=== PATIENT | female | born 1935 | race Caucasian/White ===

== ENCOUNTER 2019-05-15 00:23 | Inpatient (IN) ==
[2019-05-15] MEDS ORDERED: SODIUM CHLORIDE 0.9% INJ ONE (01:46)
[2019-05-15] MEDS ORDERED: ZOFRAN IV ONE ×2 (01:46→07:01)
[2019-05-15] MEDS ORDERED: PEPCID IV ONE (01:46)
[2019-05-15 01:59] LABS: BASO# 0.04 X1000 (0.0-0.2); BASO% 0.6 % (0.0-0.8); EOS# 0.33 X1000 (0.0-0.7); EOS% 4.7 % (0.0-10.0); HEMATOCRIT 43.8 % (37.0-47.0); HEMOGLOBIN 13.4 g/dL (12.0-16.0); IMM GRAN# 0.02 X1000 (0.0-0.04); IMM GRAN% 0.3 % (0.0-0.5); LYMPH# 2.07 X1000 (1.2-3.4); LYMPH% 29.5 % (20.5-51.1); MCH 28.8 PG (27-31); MCHC 30.6 g/dL (33-37); MONO# 0.66 X1000 (0.11-0.59); MONO% 9.4 % (1.7-9.3); MPV 10.2 FL (7.4-10.4); NEUT% 55.5 % (42.2-75.2); PLT 271 X1000 (130-400); RBC 4.66 XMIL (4.2-5.4); RDW 15.5 % (11.5-14.5); WBC 7.02 X1000 (4.8-10.8)
[2019-05-15 02:06] LABS: INR 2.29; PROTIME 25.8 Seconds (11.0-16.0)
[2019-05-15 02:17] LABS: ALBUMIN 4.1 g/dL (3.5-5.0); CALCIUM 8.5 mg/dL (8.8-10.2); CREATININE 1.4 mg/dL (0.5-0.9); POTASSIUM 4.3 mmol/L (3.5-5.1); TOTAL BILIRUBIN 0.6 mg/dL (0.20-1.00); TOTAL PROTEIN 6.2 g/dL (6.3-8.3)
[2019-05-15 02:18] LABS: URINE SOURCE CLEAN CATCH
[2019-05-15 02:43] LABS: BILIRUBIN URINE NEGATIVE (NEGATIVE); BLOOD URINE NEGATIVE (NEGATIVE); COLOR YELLOW; GLUCOSE URINE NEGATIVE (NEGATIVE); KETONE URINE NEGATIVE (NEGATIVE); LEUKOCYTES URINE NEGATIVE (NEGATIVE); NITRITE URINE NEGATIVE (NEGATIVE); PH URINE 6.5; PROTEIN URINE TRACE mg/dL (NEGATIVE); SP GRAVITY URINE 1.013; TURBIDITY URINE CLEAR (CLEAR); UROBILINOGEN URINE NORMAL (NORMAL)
[2019-05-15 02:44] LABS: UR EPITHELIAL CELLS <10 /HPF (<10); URINE BACTERIA NEGATIVE /HPF; URINE RBC <10 /HPF (<10); URINE WBC <10 /HPF (<10)
[2019-05-15] MEDS ORDERED: LASIX IV ONE (03:03)
[2019-05-15] MEDS ORDERED: NITROGLYCERIN SL PRN (05:07)
--- NOTE | 2019-05-15 05:45 | PROVIDER DOCUMENTATION ---
This chart was entered by Jay Abebe Scribe, acting as scribe for Mignon Enciso MD. HPI-Respiratory General - General Chief Complaint: Shortness of Breath Stated Complaint: SOB/ITCHING ALL OVER BODY Time Seen by Provider: 05/15/19 01:00 Source: patient, family Allergies/Adverse Reactions: Patient Allergies Allergy/AdvReac Type Severity Reaction Status Date / Time celecoxib [From Celebrex] Allergy Severe SWELLING Verified 05/15/19 01:24 Xuinvpa-Zva-Rii Reductase Allergy Severe generalized Verified 05/15/19 01:24 Inhibitor body aches tiotropium bromide * Allergy Intermediate SHORTNESS Verified 05/15/19 01:24 [From Spiriva with OF BREATH HandiHaler] albuterol AdvReac Severe confusion Verified 05/15/19 01:24 Home Medications: Home Medication List Medication Instructions Recorded Confirmed Last Taken Type Fluticasone 50 Mcg Nasal [place] 2 spray ANICETO PRN PRN 07/23/13 05/15/19 05/14/19 History [Flonase] Levothyroxine [Synthroid] 100 microgm PO QAM 07/23/13 05/15/19 05/14/19 History Nitroglycerin Sl [Nitroglycerin] 0.4 mg SL PRN PRN 07/23/13 05/15/19 08/10/18 History Lansoprazole [Prevacid] 30 mg PO QPM 02/28/14 05/15/19 05/14/19 History Albuterol Sulfate [Ventolin Hfa] 1 inh INH Q4-6H PRN PRN 02/02/18 05/15/19 08/11/18 History Aspirin [Ecotrin] 1 tab PO QHS 07/07/18 05/15/19 05/14/19 History Tramadol HCl 1 tab PO Q8H PRN PRN 07/07/18 05/15/19 08/10/18 History Furosemide 20 mg PO DIRECTED 08/11/18 05/15/19 08/11/18 History Loperamide [Imodium] 2 mg PO Q4H PRN PRN 30 Days #40 cap 08/15/18 05/15/19 Unknown Rx Telmisartan 40 mg PO DAILY 30 Days #30 tab 08/15/18 05/15/19 05/14/19 Rx Diclofenac 1% Gel [Voltaren 1% Gel] 1 applicatn TOP QHS 05/15/19 05/15/19 05/14/19 History Dicyclomine [Bentyl] 10 mg PO TID PRN 05/15/19 05/15/19 Unknown History Naproxen Sodium 220 mg PO TID 05/15/19 05/15/19 Unknown History Spironolactone 25 mg PO DAILY 05/15/19 05/15/19 05/14/19 History Warfarin [Coumadin] 1 mg PO DIRECTED 05/15/19 05/15/19 05/14/19 History Warfarin [Coumadin] 2 mg PO DIRECTED 05/15/19 05/15/19 05/13/19 History - History of Present Illness-Resp Nature of Presenting Problem: Pt is a 84 yof who presents to the ED with a CC of shortness of breath. Pt reports she began short of breath at approximately 0000. Pt complains of having chills, body aches, headache, chest pain, nauseated, and feeling itchy. Pt reports her PCP recently changed a few of her medications. Pt reports a hx of 2x heart attacks. Pt's states the pt has had similar symptoms lately, but states the pt's SOB worsened tonight. Quality of Pain: reports: aching Severity in ED: reports: mild Onset/Duration: reports: 1-3 hours ago Timing: reports: still present Cough Quality/Degree: reports: no cough Current Respiratory Medication Therapy: Initiated see nurses note Associated Symptoms: reports: chest pain/soreness, headache, muscle/bodyaches, shortness of breath, other (Itchy) Similar Symptoms Previously?: Yes Recently seen or treated by another doctor?: Yes Review of Systems - Adult - REVIEW OF SYSTEMS - ADULT Constitutional: reports: see HPI Eyes: reports: no symptoms reported Ears, Nose, Mouth & Throat: reports: no symptoms reported Cardiovascular: reports: see HPI, chest pain Respiratory: reports: see HPI, shortness of breath Gastrointestinal: reports: see HPI, nausea. denies: vomiting Genitourinary: reports: no symptoms reported Musculoskeletal: reports: see HPI, muscle aches Integumentary: reports: see HPI, itching Neurological: reports: see HPI, headache/migraines Psychiatric: reports: no symptoms reported Endocrine: reports: no symptoms reported Hematologic/Lymphatic: reports: no symptoms reported Allergic/Immunologic: reports: no symptoms reported All Other Systems: Reviewed and Negative Past History - Adult - PAST MEDICAL HISTORY-ADULT Review of Records: reports: Old Records Reviewed, Nursing Assessment Review, Medications Reviewed, Social history reviewed & non-contributory. Major Childhood Illnesses: reports: denies history Cardiovascular: reports: HTN, [place] (x2) Respiratory: reports: asthma, COPD Gastrointestinal: reports: GERD Obstetrical/Gynecological: reports: denies history Genitourinary: reports: denies history Musculoskeletal: reports: denies history Neurological: reports: denies history Psychiatric: reports: denies history Endocrine/Immune: reports: thyroid disorder Other Conditions: reports: denies history - PRIOR SURGERIES/PROCEDURES Surgical/Procedure History: reports: cholecystectomy, hernia repair, other (c ystoscopy) - IMMUNIZATION STATUS Childhood Immunizations: See Nurse Assessment Flu Vaccine: See Nurse Assessment - FAMILY HISTORY Family History: reviewed, not pertinent - SOCIAL HISTORY Smoking: denies, non-smoker Substance Use: none/never, denies Alcohol Use Frequency: never Physical Exam-General - PHYSICAL EXAM-ADULT Initial Vital Signs Reviewed: Yes - CONSTITUTIONAL General Appearance: alert, mild distress, anxious - EYES Eyes: PERRL/EOMI - HEAD, EARS, NOSE, MOUTH & THROAT HENMT: moist mucous membranes - NECK Neck: non-tender, full range of motion - RESPIRATORY Respiratory: chest non-tender, no respiratory distress, crackles (Left lower base) - CARDIOVASCULAR Cardiovascular: normal peripheral pulses, regular rate, rhythm, systolic murmur - GASTROINTESTINAL (ABDOMEN) Abdominal Exam: non tender, soft - MUSCULOSKELETAL Extremity: normal range of motion, non-tender - SKIN Integumentary: normal color, warm/dry - NEUROLOGIC Neurologic: grossly normal - PSYCHIATRIC Psych/Mental Status: normal mood/affect, normal thought content, normal thought process, oriented x 3, anxious Progress - PLAN OF CARE/RESULTS Progress/Plan/Lab Results: Vital Signs - 8 hr 05/15/19 00:29 05/15/19 00:56 05/15/19 00:57 Temperature 98.0 F Pulse Rate 80 83 82 Respiratory Rate 20 20 16 Blood Pressure 137/86 144/87 O2 Sat by Pulse Oximetry 98 98 98 05/15/19 01:00 05/15/19 01:02 05/15/19 01:15 Temperature Pulse Rate 81 80 80 Respiratory Rate 18 24 12 Blood Pressure 123/88 O2 Sat by Pulse Oximetry 99 97 97 05/15/19 01:30 05/15/19 01:32 05/15/19 01:45 Temperature Pulse Rate 84 79 80 Respiratory Rate 18 19 20 Blood Pressure 129/86 O2 Sat by Pulse Oximetry 96 96 95 05/15/19 02:00 05/15/19 02:02 05/15/19 02:15 Temperature Pulse Rate 80 81 80 Respiratory Rate 16 16 20 Blood Pressure 125/92 O2 Sat by Pulse Oximetry 98 98 95 05/15/19 02:30 05/15/19 02:32 05/15/19 02:45 Temperature Pulse Rate 81 80 81 Respiratory Rate 15 20 21 Blood Pressure 133/91 O2 Sat by Pulse Oximetry 96 97 97 05/15/19 03:00 05/15/19 03:02 05/15/19 03:15 Temperature Pulse Rate 80 81 80 Respiratory Rate 20 19 22 Blood Pressure 131/85 O2 Sat by Pulse Oximetry 95 96 95 05/15/19 03:30 05/15/19 03:32 05/15/19 03:45 Temperature Pulse Rate 80 80 80 Respiratory Rate 24 20 19 Blood Pressure 145/85 O2 Sat by Pulse Oximetry 95 97 96 05/15/19 04:00 05/15/19 04:02 05/15/19 04:15 Temperature Pulse Rate 81 80 78 Respiratory Rate 16 17 19 Blood Pressure 135/92 O2 Sat by Pulse Oximetry 95 95 95 05/15/19 04:30 05/15/19 04:32 05/15/19 04:45 Temperature Pulse Rate 80 80 80 Respiratory Rate 18 18 24 Blood Pressure 133/88 O2 Sat by Pulse Oximetry 95 95 95 05/15/19 05:00 05/15/19 05:02 Temperature Pulse Rate 80 80 Respiratory Rate 18 18 Blood Pressure 137/85 O2 Sat by Pulse Oximetry 95 95 Laboratory Results - last 24 hr 05/15/19 05/15/19 05/15/19 01:10 01:10 01:10 WBC 7.02 RBC 4.66 Hgb 13.4 Hct 43.8 MCV 94.0 MCH 28.8 MCHC 30.6 L RDW Std Deviation 15.5 H Plt Count 271 MPV 10.2 Immature Gran % (Auto) 0.3 Neut % (Auto) 55.5 Lymph % (Auto) 29.5 [place] % (Auto) 9.4 H Eos % (Auto) 4.7 Baso % (Auto) 0.6 Immature Gran # (Auto) 0.02 Neut # (Auto) 3.90 Lymph # (Auto) 2.07 [place] # (Auto) 0.66 H Eos # (Auto) 0.33 Baso # (Auto) 0.04 PT INR PTT (Actin FS) Sodium 145 Potassium 4.3 Chloride 102 Carbon Dioxide 27 Anion Gap 16 BUN 28 H Creatinine 1.4 H Estimated GFR/1.73 m2 36 BUN/Creatinine Ratio 20 Glucose 102 Calculated Osmolality 294 Calcium 8.5 L Total Bilirubin 0.60 AST 20 ALT 11 Alkaline Phosphatase 95 Troponin T Fjf-G-Liqzbziwcaf Pept 95152 H Total Protein 6.2 L Albumin 4.1 Globulin 2.1 Albumin/Globulin Ratio 2.0 Amylase 76 Lipase 55 Urine Source Urine Color Urine Turbidity Urine pH Ur Specific [place] Urine Protein Ur Glucose (Stick) Ur Ketones (Stick) Urine Blood Urine Nitrite Urine Bilirubin Urobilinogen Dipstick Urine Leukocytes Urine WBC (Auto) Urine RBC (Auto) U Epithel Cells (Auto) Urine Bacteria (Auto) 05/15/19 05/15/19 05/15/19 01:10 01:10 01:54 WBC RBC Hgb Hct MCV MCH MCHC RDW Std Deviation Plt Count MPV Immature Gran % (Auto) Neut % (Auto) Lymph % (Auto) [place] % (Auto) Eos % (Auto) Baso % (Auto) Immature Gran # (Auto) Neut # (Auto) Lymph # (Auto) [place] # (Auto) Eos # (Auto) Baso # (Auto) PT 25.8 H INR 2.29 PTT (Actin FS) 41.0 Sodium Potassium Chloride Carbon Dioxide Anion Gap BUN Creatinine Estimated GFR/1.73 m2 BUN/Creatinine Ratio Glucose Calculated Osmolality Calcium Total Bilirubin AST ALT Alkaline Phosphatase Troponin T < 0.010 Yzy-Y-Wfghqyapsgc Pept Total Protein Albumin Globulin Albumin/Globulin Ratio Amylase Lipase Urine Source CLEAN CATCH Urine Color YELLOW Urine Turbidity CLEAR Urine pH 6.5 Ur Specific [place] 1.013 Urine Protein TRACE A Ur Glucose (Stick) NEGATIVE Ur Ketones (Stick) NEGATIVE Urine Blood NEGATIVE Urine Nitrite NEGATIVE Urine Bilirubin NEGATIVE Urobilinogen Dipstick NORMAL Urine Leukocytes NEGATIVE Urine WBC (Auto) <10 Urine RBC (Auto) <10 U Epithel Cells (Auto) <10 Urine Bacteria (Auto) NEGATIVE Orders Category Date Time Status Admit - [facility] Routine AdmDCTranf 05/15/19 05:07 Active Activity - Up with Assistance ORDERED Care 05/15/19 05:07 Active Intake and Output-Strict ORDERED Care 05/15/19 05:07 Active Nursing- MD Consult Request ROUTINE Care 05/15/19 05:07 Active Vital Signs Order Q 4-HR ASSESS Care 05/15/19 05:07 Active Z-Document. for Tele Applied ORDERED Care 05/15/19 05:07 Active MD [Physician/Provider Consults] Routine Cons 05/15/19 05:07 Ordered Physician/Provider Consults Routine Cons 05/15/19 05:07 Ordered Heart Healthy Diet Diet 05/15/19 05:07 Active CHEST-PORTABLE [RAD] Stat Exams 05/15/19 01:44 Taken AMYLASE [CHEM] Stat Lab 05/15/19 01:10 Completed BASIC METABOLIC PANEL [CHEM] Routine Lab 05/16/19 06:00 Ordered CBC WITH ELECTRONIC DIFF [HEME] Stat Lab 05/15/19 01:10 Completed COMPREHENSIVE METABOLIC PANEL [CHEM] Stat Lab 05/15/19 01:10 Completed LIPASE [CHEM] Stat Lab 05/15/19 01:10 Completed PRO B-NATRIURETIC PEPTIDE Stat Lab 05/15/19 01:10 Completed PROTIME WITH INR [COAG] DAILY Lab 05/15/19 06:00 Ordered PROTIME WITH INR [COAG] DAILY Lab 05/16/19 06:00 Ordered PROTIME WITH INR [COAG] DAILY Lab 05/17/19 06:00 Ordered PROTIME WITH INR [COAG] Stat Lab 05/15/19 01:10 Completed PTT [COAG] Stat Lab 05/15/19 01:10 Completed TROPONIN T Stat Lab 05/15/19 01:10 Completed URINALYSIS W/POSS RFLX CULT [URINALYSIS] Stat Lab 05/15/19 01:54 Completed Aspirin EC Med 05/15/19 21:00 Active 81 mg PO QHS Famotidine [Pepcid] Med 05/15/19 01:46 Discontinued 20 mg IV NOW ONE Furosemide [Lasix] Med 05/15/19 03:03 Discontinued 40 mg IV NOW ONE Furosemide [Lasix] Med 05/15/19 15:00 Active 40 mg IV Q12H Lansoprazole Rap.d.r [Prevacid Solutab] Med 05/15/19 21:00 Active 30 mg PO QPM Levothyroxine [Synthroid] Med 05/15/19 07:00 Active 100 microgm PO QAM@0700 Nitroglycerin Sl [Nitroglycerin] Med 05/15/19 05:07 Active 0.4 mg SL PRN PRN Ondansetron [Zofran] Med 05/15/19 01:46 Discontinued 4 mg IV NOW ONE Sodium Chloride 0.9% Med 05/15/19 01:46 Discontinued 5 - 10 ml INJ NOW ONE Spironolactone [Aldactone] Med 05/15/19 09:00 Active 25 mg PO DAILY Telmisartan [Micardis] Med 05/15/19 09:00 Active 40 mg PO DAILY Warfarin [Coumadin] Med 05/18/19 21:00 Active 1 mg PO MoFr@2100 Warfarin [Coumadin] Med 05/15/19 21:00 Active 2 mg PO SuTuWeThSa@2100 Telemetry [OM.EQ] Routine Oth 05/15/19 05:07 Active Transfer/Admit Order [TRANSFER] Routine Transfer 05/15/19 04:17 Completed Patient with BNP to 23k. Has been this high in the past and she has been admitted. Patient with multiple vague symptoms. Requirs admission for CHF exacberation. Spoke to Dr Gabriel application development team lead for hospitalist who accepted patient for admission. Furhter orders to be placed by their team. Result Diagrams: 05/15/19 01:10 05/15/19 01:10 - EKG 1 Time of EKG reading by physician:: 03:39 EKG Read and Signed by:: Mignon Enciso EKG Interpretation (*Must complete 3 of following elements*): Normal Rate: 80 Comments: Ventricular paced rhythm - XRAY 1 XRAY Study: Chest (cardiomegaly with pulm congestion) - CONSULTS/PCP/HOSPITALIST Notification #1 *Consult/PCP/Hospitalist*: Dr Gabriel Time Discussed: 03:45 Consult Disposition: Admit Departure - Departure Date of Disposition Decision: 05/15/19 Time of Disposition Decision: 03:45 DIAGNOSIS: Dyspnea on exertion, Congestive heart failure, Shortness of breath Disposition: ADMITTED INPATIENT 09 Certified Medical Emergency: Emergent Condition: Stable - Critical Care Note This patient required my direct & personal management of CC.: No Attestation - Physician/ KEATON Attestation Patient care was provided by Advanced Practice Provider:: No The physician spent face to face time with patient:: Yes Advanced Practice Provider documentation review:: Supervising physician onsite and consulted in the evaluation and care of this patient. The physician did have a face to face encounter with the patient. This chart was documented by the indicated scribe, (Jay Abebe, [place]) and accurately reflects the services I performed and decisions made by me, Mignon Enciso MD, as attested by the provider's signature.
--- NOTE | 2019-05-15 06:24 | HISTORY AND PHYSICAL ---
PRIMARY CARE PHYSICIAN: Dr. Daniel Hill. CHIEF COMPLAINT: Shortness of breath. HISTORY OF PRESENTING ILLNESS: An 84-year-old female with a history of CHF, coronary artery disease, DVT, hypertension, paroxysmal atrial fibrillation, who presented to the emergency department with 3 weeks history of progressive worsening shortness of breath. The patient states that over the past week or so, it has been worse and she was having difficulty breathing. She was evaluated in the emergency department. She was found to be in heart failure[place] [address]. Due to her presenting symptoms, she will require admission for further management. At the emergency department, she received IV Lasix and she had some improvement. At the time of my examination, she denied any headache, fever, chills, hemoptysis, melena, but complained of shortness of breath and mild chest discomfort. PAST MEDICAL HISTORY: Includes coronary artery disease, DVT, hypertension, paroxysmal atrial fibrillation. CHF. PAST SURGICAL HISTORY: Right total knee, coronary bypass, cholecystectomy, catheter ablation. ALLERGIES: Celebrex, statins. CURRENT MEDICATIONS: Include: 1. Aspirin 81 mg p.o. at bedtime. 2. Lasix 20 mg p.o. daily. 3. Prevacid 30 mg p.o. q.p.m. 4. Levothyroxine 100 mcg p.o. q.a.m. 5. Nitroglycerin 0.4 mg sublingual p.r.n. 6. Spironolactone 25 mg p.o. daily. 7. Telmisartan 40 mg p.o. daily. 8. Warfarin 1 mg p.o. at bedtime. SOCIAL HISTORY: No history of smoking, alcohol or illicit drug use. FAMILY HISTORY: No history of coronary disease. REVIEW OF SYSTEMS: Fourteen point review of system listed is as in HPI. Other systems negative. PHYSICAL EXAMINATION: GENERAL: Cooperative, friendly female. She is resting more comfortably now. VITAL SIGNS: Temperature 98 degrees, pulse 80, respirations 20, blood pressure 137/86. HEENT: Atraumatic, normocephalic. Extraocular movements intact. PERRLA. NECK: No masses. CHEST: Bibasilar rales. CARDIOVASCULAR: Regular rate and rhythm. ABDOMEN: Soft. Positive bowel sounds. EXTREMITIES: No edema. NEUROLOGIC: She is awake, alert, oriented x3. GENITOURINARY: No bladder distention. SKIN: Warm. LABORATORIES AND STUDIES: WBCs 7.02, hemoglobin 13.4, hematocrit 43.8, platelets 271,000. Sodium 145, potassium 4.3, chloride 102, CO2 is 27, BUN is 28, creatinine is 1.4, [place] 102[place] [address]. Troponin 0.010. ASSESSMENT: An 84-year-old female with a history of coronary artery disease, congestive heart failure, paroxysmal atrial fibrillation, deep venous thrombosis and hypertension, that presented to the emergency department with 3 weeks history of progressive worsening shortness of breath. She was evaluated in the emergency department. She was found to be in heart failure. Subsequently, she will require admission for further management. 1. Acute on chronic congestive heart failure exacerbation. 2. Atrial fibrillation. 3. Coronary artery disease. 4. Hypertension. PLAN: 1. We will admit patient to PVC. 2. We will continue with gentle diuresis. 3. We will consult Cardiology. 4. Continue to monitor patient on telemetry. 5. Will monitor blood pressure closely. 6. The patient is already on Coumadin. This will suffice for DVT prophylaxis. 7. We will continue to follow and reassess, make further recommendation based on patient's clinical course. cc: MD Elio Ivey MD
--- NOTE | 2019-05-15 07:04 | Diag Imaging Result Doc PS360 ---
EXAM: CHEST-PORTABLE 05/15/2019 HISTORY: chest pain TECHNIQUE: AP portable at 0205 COMMENT: There is ill-defined opacity in the left lower lobe which has worsened slightly since 04/26/2019. The inspiration is also less optimal however. The heart size remains enlarged. IMPRESSION: Left lower lobe atelectasis versus pneumonia. Cardiomegaly. Electronically signed by Nathan Cha 05/15/2019 7:02 AM
[2019-05-15 07:24] LABS: INR 2.27; PROTIME 25.6 Seconds (11.0-16.0)
--- NOTE | 2019-05-15 07:31 | EKG Report ---
Test Performed on : 05/15/2019 00:36:02 AM Test Reason : CHF EXACERBATION Blood Pressure : / mmHG Vent. Rate : 080 BPM Atrial Rate : 078 BPM P-R Int : 000 ms QRS Dur : 136 ms QT Int : 450 ms P-R-T Axes : 000 133 027 degrees QTc Int : 519 ms Ventricular-paced rhythm Abnormal ECG When compared with ECG of 17-FEB-2019 14:44, premature ventricular complexes. are no longer present Unconfirmed Result
[2019-05-15] MEDS ORDERED: ALDACTONE PO SCH ×2 (09:00→21:00)
[2019-05-15] MEDS: MICARDIS PO SCH (10:26)
[2019-05-15] MEDS: SYNTHROID PO SCH (10:26)
--- NOTE | 2019-05-15 10:37 | PROGRESS NOTE ---
DATE: 05/15/2019 Ms. Jenny Montero was admitted to [facility] with acute on chronic congestive heart failure secondary to systolic dysfunction. She had been having increasing dyspnea with exertion, peripheral edema, as well as orthopnea. Her reported that she had been sleeping in a recliner. She was bolused with Lasix last night. She is breathing much more comfortably this morning. Her O2 saturations are 96% on room air. Her chest x-ray demonstrated no pleural effusions. She does have a history of paroxysmal atrial fibrillation. She remains in normal sinus rhythm. Her heart rate has been in the 80s. She has had no bleeding complications secondary to the Coumadin. She does have a history of known ischemic heart disease. She has had intermittent episodes of chest pain. She has had a stress test in the past year that demonstrated no reversible ischemia. Her marker machine attendant is Dr. Medina at [facility]. PHYSICAL EXAMINATION: Temperature 97.6 degrees, pulse 80, respirations 17, blood pressure 138/93. CV: Regular rate and rhythm. Lungs: Faint crackles in the bases bilaterally. Abdomen: Soft, nontender, with active bowel sounds. Extremities: Trace ankle edema. LABS: Various laboratory studies were obtained. A CBC demonstrated a white count of 7.02, hemoglobin 13.4, hematocrit 43.8, and a platelet count of 271,000. Her prothrombin time was 25.6 with an INR of 2.27. Electrolytes demonstrated the following: Sodium 145, potassium 4.3, chloride 102, BUN 28, creatinine 1.4, and glucose 102. ASSESSMENT AND PLAN: 1. Acute on chronic congestive heart failure secondary to systolic dysfunction. We will continue a salt and fluid restricted diet. We will continue gentle diuresis with Lasix. We certainly may need to increase the spironolactone. I will check serial cardiac enzymes to rule her out for myocardial ischemia. She is scheduled to see Dr. Medina on July 10 for repeat echocardiogram. Upon discharge, I will call Dr. Medina's office to see if we can move that appointment up for Ms. Montero. 2. Hypertension. Her blood pressure is generally stable. We will continue the Micardis and monitor her blood pressure closely. cc: Elio Hill MD
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
[2019-05-15] MEDS: LASIX IV SCH (14:49)
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
[2019-05-15] MEDS ORDERED: ASPIRIN EC PO SCH (21:00)
[2019-05-15] MEDS ORDERED: PREVACID SOLUTAB PO SCH (21:00)
[2019-05-15] MEDS ORDERED: COUMADIN PO SCH (21:00)
[2019-05-16] MEDS: LASIX IV SCH (03:33)
[2019-05-16] MEDS: SYNTHROID PO SCH (06:27)
[2019-05-16 06:37] LABS: INR 2.07; PROTIME 23.8 Seconds (11.0-16.0)
[2019-05-16 07:14] LABS: CREATININE 1.4 mg/dL (0.5-0.9); POTASSIUM 3.8 mmol/L (3.5-5.1)
[2019-05-16] MEDS ORDERED: ALDACTONE PO SCH (09:00)
[2019-05-16] MEDS: MICARDIS PO SCH (09:53)
[2019-05-16 11:31] VITALS: BP 122/67
--- NOTE | 2019-05-17 17:15 | DISCHARGE SUMMARY ---
ADMISSION DATE: 05/15/2019 DISCHARGE DATE: 05/16/2019 DISCHARGE DIAGNOSES: 1. Acute on chronic congestive heart failure secondary to systolic dysfunction. 2. Essential hypertension. 3. Paroxysmal atrial fibrillation. 4. Ischemic heart disease without angina pectoris. 5. Primary hypothyroidism. 6. Gastroesophageal reflux disease. 7. Primary hypothyroidism. DISCHARGE INSTRUCTIONS: 1. The patient is to return to clinic in 1 week to see me, Dr. Daniel Hill, in anticipation of a transition of care visit. 2. Activity as tolerated. 3. Healthy heart diet. MEDICATIONS: Spironolactone 12.5 mg daily. Coumadin 2 mg at night on Tuesday, Tuesday, Tuesday, , and Tuesday and 2 mg (one-half tablet) on Tuesday. Flonase nasal spray 1 spray to each nostril daily. Levothyroxine 100 mcg daily. Prevacid 30 mg daily. Ventolin HFA inhaler 2 puffs q.6 h. p.r.n. shortness of breath. Aspirin 81 mg daily. Telmisartan 40 mg daily. Lasix 40 mg daily and may take an additional Lasix if she gains 2 or more pounds in 24 hours. Several and will nitroglycerin 0.4 mg sublingually every 5 minutes p.r.n. chest pain. DISCHARGE PHYSICAL EXAMINATION: General: This is an elderly, frail, 84-year-old lady in no apparent distress. Vital Signs: Temperature 98.4 degrees pulse 81, respirations 23, BP 122/61. Cardiovascular: Regular rate and rhythm. Lungs: Clear. Abdomen: Soft, nontender, with active bowel sounds. Extremities: Without edema. Mrs. Montero has a longstanding history of chronic congestive heart failure secondary to systolic dysfunction. She had recently seen her engineering writer at [facility], and he had started spironolactone 25 mg daily. She initially developed diarrhea and stopped taking the spironolactone. The diarrhea resolved. Over the course of the next several days, she had increasing shortness of breath, increasing work of breathing, PND, orthopnea, and increasing peripheral edema. Her chest x-ray demonstrated no pleural effusions. She was placed on a salt- and fluid-restricted diet. We aggressively diuresed her with Lasix. I increased the spironolactone to 25 mg b.i.d. She had some diarrhea overnight. I reduced the spironolactone to 12.5 mg daily. With aggressive diuresis and a salt- and fluid-restricted diet, she improved significantly from a clinical standpoint. We will continue aggressive blood pressure control. We will continue a salt- and fluid-restricted diet. We will continue low-dose Aldactone. I have asked her to weigh daily. She will take Lasix 40 mg daily, and she may take a second dose of Lasix if she gains 2 pounds in 24 hours. Having reached maximum hospital benefit, the patient was discharged in stable condition. cc: Elio Hill MD
[2019-05-18] MEDS ORDERED: COUMADIN PO SCH (21:00)
== END 2019-05-16 13:18 | disposition home or self-care (01) | DRG 293 ==
LOC: ED 00:23 → SUATTDRO 05:15 → EDIPHOLD 05:15 → 2N 08:49
PROVIDERS: ADMIT Internal Medicine; ATTEND Internal Medicine

== ENCOUNTER 2019-05-29 17:23 | Observation (INO) ==
--- NOTE | 2019-05-29 18:01 | PROVIDER DOCUMENTATION ---
HPI-Respiratory General - General Chief Complaint: Shortness of Breath Stated Complaint: SOB Time Seen by Provider: 05/29/19 17:38 Source: patient Allergies/Adverse Reactions: Patient Allergies Allergy/AdvReac Type Severity Reaction Status Date / Time celecoxib [From Celebrex] Allergy Severe SWELLING Verified 05/29/19 17:58 [id number] Reductase Allergy Severe generalized Verified 05/29/19 17:58 Inhibitor body aches tiotropium bromide * Allergy Intermediate SHORTNESS Verified 05/29/19 17:58 [From Spiriva with OF BREATH HandiHaler] albuterol AdvReac Severe confusion Verified 05/29/19 17:58 azithromycin AdvReac DIARRHEA Verified 05/29/19 17:58 Home Medications: Home Medication List Medication Instructions Recorded Confirmed Last Taken Type Fluticasone 50 Mcg Nasal [place] 2 spray ANICETO PRN PRN 07/23/13 05/29/19 05/14/19 History [Flonase] Levothyroxine [Synthroid] 100 microgm PO QAM 07/23/13 05/29/19 05/14/19 History Lansoprazole [Prevacid] 30 mg PO QPM 02/28/14 05/29/19 05/14/19 History Albuterol Sulfate [Ventolin Hfa] 1 inh INH Q4-6H PRN PRN 02/02/18 05/29/19 08/11/18 History Aspirin [Ecotrin] 1 tab PO QHS 07/07/18 05/29/19 05/14/19 History Loperamide [Imodium] 2 mg PO Q4H PRN PRN 30 Days #40 cap 08/15/18 05/29/19 Unknown Rx Telmisartan 40 mg PO DAILY 30 Days #30 tab 08/15/18 05/29/19 05/14/19 Rx Diclofenac 1% Gel [Voltaren 1% Gel] 1 applicatn TOP QHS 05/15/19 05/29/19 05/14/19 History Gabapentin 300 mg PO QHS 05/15/19 05/29/19 Unknown History Warfarin [Coumadin] 1 mg PO DIRECTED 05/15/19 05/29/19 05/14/19 History Furosemide 40 mg PO DIRECTED #60 tab 05/16/19 05/29/19 Unknown Rx Nitroglycerin Sl [Nitroglycerin] 0.4 mg SUBLINGUAL PRN PRN #30 tab 05/16/19 05/29/19 Unknown Rx Spironolactone [Aldactone] 12.5 mg PO DAILY #30 tab 05/16/19 05/29/19 Unknown Rx Warfarin [Coumadin] 2 mg PO [id number]@2100 tab 05/16/19 05/29/19 05/29/19 Rx - History of Present Illness-Resp Nature of Presenting Problem: 84 YEAR OLD PLEASANT FEMALE WITH MEDICAL HISTORY OF CONGESTIVE HEART FAILURE AND ASTHMA CAME IN WITH DAUGHTER WITH CONCERN OF FEELING SHORTNESS OF BREATH WHILE GROCERY SHOPPING. ACCORDING TO PATIENT, PATIENT WAS RUSHING AT GROCERY TODAY AND FELT WINDED/SHORTNESS OF BREATH. CURRENTLY SITTING DOWN, PATIENT DENIES FEELING SHORTNESS OF BREATH. DENIES FEVER, CHILL, NIGHT SWEATS, DIZZINESS, LIGHTHEADEDNESS, BLURRY VISION, SORE THROAT, CHEST PAIN, PRODUCTIVE COUGH, NAUSEA, VOMITING, DIARRHEA, CONSTIPATION, MYALGIA, ARTHRALGIA, NEW RASH/LESION, AND HEAT OR COLD INTOLERANCE. Review of Systems - Adult - REVIEW OF SYSTEMS - ADULT Constitutional: denies: chills, fever, fatique, night sweats Eyes: denies: discharge, blurred vision Ears, Nose, Mouth & Throat: reports: no symptoms reported Cardiovascular: denies: chest pain, heart murmur, irregular heart rate, orthopnea, palpitations, syncope Respiratory: reports: shortness of breath. denies: cough, wheezing Gastrointestinal: reports: no symptoms reported Genitourinary: reports: no symptoms reported Musculoskeletal: reports: no symptoms reported Integumentary: reports: no symptoms reported Neurological: reports: no symptoms reported Psychiatric: reports: no symptoms reported Endocrine: reports: no symptoms reported Hematologic/Lymphatic: reports: no symptoms reported Allergic/Immunologic: reports: no symptoms reported Past History - Adult - PAST MEDICAL HISTORY-ADULT Review of Records: reports: Old Records Reviewed Major Childhood Illnesses: reports: denies history Cardiovascular: reports: HTN, DC (x2) Respiratory: reports: asthma, COPD Gastrointestinal: reports: GERD Obstetrical/Gynecological: reports: denies history Genitourinary: reports: denies history Musculoskeletal: reports: denies history Neurological: reports: denies history Psychiatric: reports: denies history Endocrine/Immune: reports: thyroid disorder Other Conditions: reports: denies history - PRIOR SURGERIES/PROCEDURES Surgical/Procedure History: reports: cholecystectomy, hernia repair, other (cystoscopy) - IMMUNIZATION STATUS Childhood Immunizations: See Nurse Assessment Flu Vaccine: See Nurse Assessment - FAMILY HISTORY Family History: reviewed, not pertinent Physical Exam-General - PHYSICAL EXAM-ADULT Initial Vital Signs Reviewed: Yes - CONSTITUTIONAL General Appearance: appears well, alert, no apparent distress - EYES Eyes: PERRL/EOMI - HEAD, EARS, NOSE, MOUTH & THROAT HENMT: normocephalic/atraumatic, moist mucous membranes - NECK Neck: non-tender, full range of motion, supple - RESPIRATORY Respiratory: chest non-tender, lungs clear, normal breath sounds, no pleuratic chest pain, no respiratory distress, no accessory muscle use. negative: respiratory distress, decreased breath sounds, accessory muscle use, crackles, rales, rhonchi, stridor, wheezing - CARDIOVASCULAR Cardiovascular: normal peripheral pulses, regular rate, rhythm, no edema, no gallop, no JVD, no murmur - GASTROINTESTINAL (ABDOMEN) Abdominal Exam: normal bowel sounds, non tender, soft, no organomegaly, no pulsatile mass - MUSCULOSKELETAL Back Exam: normal inspection, no CVA tenderness, no vertebral tenderness Extremity: normal range of motion, non-tender, normal gait - SKIN Integumentary: normal color, normal turgor, warm/dry - NEUROLOGIC Neurologic: grossly normal - PSYCHIATRIC Psych/Mental Status: normal mood/affect, normal thought content, normal thought process, oriented x 3 Progress - PLAN OF CARE/RESULTS Progress/Plan/Lab Results: Vital Signs - 8 hr 05/29/19 17:25 05/29/19 17:48 05/29/19 18:00 Temperature 97.3 F L Pulse Rate 85 87 86 Respiratory Rate 18 14 25 H Blood Pressure 121/80 O2 Sat by Pulse Oximetry 98 96 96 Laboratory Results - last 24 hr 05/29/19 05/29/19 05/29/19 18:50 18:50 18:50 WBC 7.01 RBC 4.62 Hgb 13.2 Hct 44.1 MCV 95.5 MCH 28.6 MCHC 29.9 L RDW Std Deviation 15.8 H Plt Count 190 MPV 11.0 H Immature Gran % (Auto) 0.3 Neut % (Auto) 62.9 Lymph % (Auto) 20.3 L [place] % (Auto) 12.7 H Eos % (Auto) 3.4 Baso % (Auto) 0.4 Immature Gran # (Auto) 0.02 Neut # (Auto) 4.41 Lymph # (Auto) 1.42 [place] # (Auto) 0.89 H Eos # (Auto) 0.24 Baso # (Auto) 0.03 Sodium 139 Potassium 5.3 H Chloride 104 Carbon Dioxide 26 Anion Gap 9 BUN 27 H Creatinine 1.6 H Estimated GFR/1.73 m2 31 BUN/Creatinine Ratio 17 Glucose 105 H Calculated Osmolality 283 Calcium 8.4 L Magnesium 2.5 Mir-O-Fyxlyyqvtrv Pept 76363 H Orders Category Date Time Status Nursing- Obtain EKG ONCE Care 05/29/19 17:58 Active CHEST-PORTABLE [RAD] Stat Exams 05/29/19 17:58 Completed BASIC METABOLIC PANEL [CHEM] Stat Lab 05/29/19 18:50 Completed CBC WITH ELECTRONIC DIFF [HEME] Stat Lab 05/29/19 18:50 Completed MAGNESIUM [CHEM] Stat Lab 05/29/19 18:50 Completed PRO B-NATRIURETIC PEPTIDE Stat Lab 05/29/19 18:50 Completed Azithromycin [Zithromax] Med 05/29/19 20:05 Discontinued 500 mg PO NOW ONE Furosemide [Lasix] Med 05/29/19 20:05 Discontinued 40 mg IV NOW ONE EKG [EKG] Stat Ther 05/29/19 17:58 Ordered Result Diagrams: 05/29/19 18:50 05/29/19 18:50 - REASSESSMENT Reassessment #1 Time Reassessed: 20:06 Status: other (SPOKE TO HOSPITALIST; NO NEUTROPHILIC LEUKOCYTOSIS AND NO FEVER. DOUBT TRUE PNEUMONIA. HOWEVERE, WILL OBSERVE PATIENT OVERNIGHT GIVEN ELEVATED BNP AND ALSO SAT ROOM AIR IN LOW 90S HIGH 80S. I HAVE GIVEN HER A DOSE OF LASIX 40MG XI AND PATIENT WILL BE OBSERVED OVERNIGHT. APPRECIATE HOSPITALIST ASSITANCE.) - XRAY 1 XRAY Study: Chest ([facility] - [address], [address], [place] [address] [facility] - [address] [place] [address] Department of Imaging Patient: BOB ROSE Date: 05/29/19MR#: [id number] : 1935DM Status: PRE ERAcct#: [id number] Age/Sex: 84/FRoom/Bed: Loc: ED Ordering Physician: Chasity Swartz MD Family Physician: Carol Ann Hill MD Reason for Procedure: SOB Signed EXAM: CHEST-PORTABLE HISTORY: SOB TECHNIQUE: Chest single view COMPARISON: 05/15/2019 FINDINGS: The lungs are well expanded. The heart is is enlarged. There are sternal wires and left-sided pacemaker. Small left pleural effusion with basilar atelectasis and possibly and underlying infiltrate. No pulmonary edema. IMPRESSION: Cardiomegaly with left lower lobe atelectasis and/or pneumonia. Electronically signed by Kevin Lee 05/29/2019 6:19 PM 05/29/191818 Interpreting Physician: Kevin Lee MD Dictated Date/Time: 05/29/191817 cc: Chasity Swartz MD; Carol Ann Hill MD) Departure - Departure Date of Disposition Decision: 05/29/19 Time of Disposition Decision: 20:11 DIAGNOSIS: Elevated brain natriuretic peptide (BNP) level, Dyspnea Disposition: ADMITTED INPATIENT 09 Certified Medical Emergency: Emergent Condition: Stable Referrals and Follow-Ups: Carol Ann Hill MD [Primary Care Provider] - - Critical Care Note This patient required my direct & personal management of CC.: No Attestation - Physician/ KEATON Attestation Patient care was provided by Advanced Practice Provider:: No The physician spent face to face time with patient:: Yes Advanced Practice Provider documentation review:: Supervising physician onsite and consulted in the evaluation and care of this patient. The physician did have a face to face encounter with the patient.
--- NOTE | 2019-05-29 18:21 | Diag Imaging Result Doc PS360 ---
EXAM: CHEST-PORTABLE HISTORY: SOB TECHNIQUE: Chest single view COMPARISON: 05/15/2019 FINDINGS: The lungs are well expanded. The heart is is enlarged. There are sternal wires and left-sided pacemaker. Small left pleural effusion with basilar atelectasis and possibly and underlying infiltrate. No pulmonary edema. IMPRESSION: Cardiomegaly with left lower lobe atelectasis and/or pneumonia. Electronically signed by Kevin Lee 05/29/2019 6:19 PM
[2019-05-29 19:27] LABS: BASO# 0.03 X1000 (0.0-0.2); BASO% 0.4 % (0.0-0.8); EOS# 0.24 X1000 (0.0-0.7); EOS% 3.4 % (0.0-10.0); HEMATOCRIT 44.1 % (37.0-47.0); HEMOGLOBIN 13.2 g/dL (12.0-16.0); IMM GRAN# 0.02 X1000 (0.0-0.04); IMM GRAN% 0.3 % (0.0-0.5); LYMPH# 1.42 X1000 (1.2-3.4); LYMPH% 20.3 % (20.5-51.1); MCH 28.6 PG (27-31); MCHC 29.9 g/dL (33-37); MCV 95.5 FL (81-99); MONO# 0.89 X1000 (0.11-0.59); MONO% 12.7 % (1.7-9.3); NEUT# 4.41 X1000 (1.4-6.5); NEUT% 62.9 % (42.2-75.2); PLT 190 X1000 (130-400); RBC 4.62 XMIL (4.2-5.4); RDW 15.8 % (11.5-14.5); WBC 7.01 X1000 (4.8-10.8)
[2019-05-29 19:41] LABS: CALCIUM 8.4 mg/dL (8.8-10.2); CREATININE 1.6 mg/dL (0.5-0.9); MAGNESIUM 2.5 mg/dL (1.5-2.7); POTASSIUM 5.3 mmol/L (3.5-5.1)
[2019-05-29] MEDS ORDERED: LASIX IV ONE (20:05)
[2019-05-29] MEDS ORDERED: ZITHROMAX PO ONE (20:05)
--- NOTE | 2019-05-29 20:27 | EKG Report ---
Test Performed on : 05/29/2019 6:57:16 PM Test Reason : SOB Blood Pressure : / mmHG Vent. Rate : 088 BPM Atrial Rate : 087 BPM P-R Int : 000 ms QRS Dur : 144 ms QT Int : 462 ms P-R-T Axes : 000 137 037 degrees QTc Int : 559 ms Ventricular-paced rhythm with frequent premature ventricular complexes. Abnormal ECG When compared with ECG of 15-MAY-2019 00:36, (Unconfirmed) premature ventricular complexes. are now present Vent. rate has increased BY 8 BPM Unconfirmed Result
[2019-05-29] MEDS ORDERED: TYLENOL PO ONE (21:38)
--- NOTE | 2019-05-29 22:10 | HISTORY AND PHYSICAL ---
PRIMARY CARE PHYSICIAN: Dr. Daniel Hill. CHIEF COMPLAINT: Shortness of breath. HISTORY OF PRESENTING ILLNESS: An 84-year-old female with a history of CHF, systolic dysfunction, hypertension, paroxysmal atrial fibrillation, coronary artery disease, DVT, hypothyroidism, who was just discharged from hospital recently after treatment for congestive heart failure. She states that she went home and her doctor told to take 3 diuretics and she was concerned about it and so she did not take it. She was only taking 1 diuretic. She states that she became progressively short of breath and was having difficulty breathing. She was evaluated in the emergency department. She was found to be in heart failure and subsequently she will need admission for further management. The patient states that she has an appointment to see her satellite dish installer tomorrow. At time of my examination, she had denied any headache, fever, chills, chest pain, hemoptysis or any weight changes but complained of shortness of breath. PAST MEDICAL HISTORY: Includes coronary artery disease, DVT, hypertension, paroxysmal atrial fibrillation, CHF, hypothyroidism. PAST SURGICAL HISTORY: Right total knee, coronary bypass, cholecystectomy, catheter ablation, permanent pacemaker. ALLERGIES: Celebrex and statins. CURRENT MEDICATIONS: Albuterol nebs q.4 hours, aspirin 81 mg p.o. daily, furosemide 40 mg p.o. daily, gabapentin 300 at bedtime , Prevacid 30 mg p.o. nightly, levothyroxine 100 mcg p.o. q.a.m., nitroglycerin 0.4 mg sublingual p.r.n., spironolactone 12.5 mg p.o. daily, telmisartan 40 mg p.o. daily, warfarin 2 mg p.o. daily as directed. SOCIAL HISTORY: No history of smoking, alcohol or illicit drug use. FAMILY HISTORY: No history of coronary disease. REVIEW OF SYSTEMS: Fourteen point review of systems is as in HPI. Other systems negative. PHYSICAL EXAMINATION: GENERAL: Cooperative, friendly elderly female. She is resting more comfortably now. VITAL SIGNS: Temperature 97.3 degrees, pulse 85, respiration 18, blood pressure 121/80. HEENT: Atraumatic, normocephalic. Extraocular movements intact. PERRLA. NECK: No masses. CHEST: Bibasilar rales. CARDIOVASCULAR: Regular rate and rhythm. ABDOMEN: Soft. Positive bowel sounds. EXTREMITIES: +1 edema. NEUROLOGIC: She is awake, alert, oriented x3. : No bladder distention. SKIN: Warm. LABORATORIES AND STUDIES: WBC 7.01, hemoglobin 13.2, hematocrit 44.1, platelets 190,000. Sodium 139, potassium 5.3, chloride 104, CO2 is 26, BUN is 27, creatinine is 1.6, glucose is 105. ProBNP is 22,658. Chest x-ray shows cardiomegaly. ASSESSMENT: This 84-year-old female with a history of congestive heart failure, systolic dysfunction, coronary disease, deep vein thrombosis, paroxysmal atrial fibrillation who was discharged from hospital recently after treatment for congestive heart failure. She was sent home to take several diuretics, however she was concerned about it and did not take it and she wanted to wait to see her satellite dish installer at [place] tomorrow. However, she presented to emergency department due to worsening shortness of breath and subsequently we will place her for observation for further management . 1. Congestive heart failure exacerbation, systolic dysfunction. 2. Chronic atrial fibrillation. 3. Coronary artery disease. 4. Hypertension. PLAN: 1. We will admit patient to PVC. 2. We will continue with diuresis with Lasix. 3. We will continue monitor patient on telemetry and continue her anticoagulation. 4. We will monitor blood pressure. Resume antihypertensive agent. 5. The patient is on Coumadin and this will suffice for DVT prophylaxis. 6. We will continue to follow and reassess. Make further recommendation based on patient's clinical course. cc: Rodolfo Gabriel MD MTDD
[2019-05-29] MEDS ORDERED: VENTOLIN HFA INH PRN (22:38)
[2019-05-29] MEDS ORDERED: NITROGLYCERIN SL PRN (22:38)
[2019-05-29] MEDS: NEURONTIN PO SCH (23:21)
[2019-05-30] MEDS: PREVACID SOLUTAB PO SCH ×2 (00:17→20:42)
[2019-05-30] MEDS: SYNTHROID PO SCH ×2 (05:37→06:07)
[2019-05-30 06:20] LABS: INR 2.58; PROTIME 28.4 Seconds (11.0-16.0)
[2019-05-30 06:38] LABS: BASO# 0.05 X1000 (0.0-0.2); BASO% 0.5 % (0.0-0.8); EOS% 4.2 % (0.0-10.0); HEMATOCRIT 49.4 % (37.0-47.0); HEMOGLOBIN 15.1 g/dL (12.0-16.0); IMM GRAN# 0.02 X1000 (0.0-0.04); IMM GRAN% 0.2 % (0.0-0.5); LYMPH# 2.27 X1000 (1.2-3.4); LYMPH% 23.8 % (20.5-51.1); MCH 29.3 PG (27-31); MCHC 30.6 g/dL (33-37); MCV 95.9 FL (81-99); MONO# 1.08 X1000 (0.11-0.59); MONO% 11.3 % (1.7-9.3); MPV 11.1 FL (7.4-10.4); NEUT# 5.72 X1000 (1.4-6.5); PLT 195 X1000 (130-400); RBC 5.15 XMIL (4.2-5.4); RDW 16.3 % (11.5-14.5); WBC 9.54 X1000 (4.8-10.8)
[2019-05-30 07:09] LABS: BASO 1 % (0-1); EOS 4 % (1-10); LYMPHS 25 % (21-51); MONO 6 % (1-9); POLYCHROM 2+; SEGS 60 % (42-75)
[2019-05-30 08:26] LABS: CALCIUM 9.4 mg/dL (8.8-10.2); CREATININE 1.4 mg/dL (0.5-0.9); POTASSIUM 5.3 mmol/L (3.5-5.1)
[2019-05-30] MEDS: ALDACTONE PO SCH (08:40)
[2019-05-30] MEDS: LASIX IV SCH ×2 (08:40→20:42)
[2019-05-30] MEDS: MICARDIS PO SCH (08:40)
--- NOTE | 2019-05-30 12:46 | ECHO REPORT ---
ORDER DATE: 05/30/2019 INDICATION: CHF. FINDINGS: 1. The right atrium is mildly enlarged at 4.5 cm. 2. Mild tricuspid regurgitation. 3. Normal RV size and systolic function. 4. Mild pulmonic insufficiency. 5. Mild left atrial enlargement with a dimension of 4.3 cm. 6. No mitral valve prolapse. Mild mitral regurgitation. No clear evidence of mitral stenosis on this study. 7. Normal LV size, end-diastolic dimension of 5.1 cm. Normal wall thicknesses with a posterior and interventricular septal wall thickness of 0.8 cm each. Normal LV systolic function with estimated EF of 60%. There does appear to be E-to-A reversal consistent with mild diastolic dysfunction. 8. Aortic valve opens well. Mild insufficiency. The valve is trileaflet. No clear evidence of stenosis. 9. Aorta appears normal in visualized segments. 10. No pericardial effusion seen. cc: MD Elio Hurst MD
[2019-05-30] MEDS ORDERED: FLONASE NAS PRN (13:09)
--- NOTE | 2019-05-30 13:44 | PROGRESS NOTE ---
DATE: 05/30/2019 Ms. Montero was admitted to [facility] with acute on chronic congestive heart failure secondary to systolic dysfunction. She had been with complaint of PND, orthopnea, dyspnea with exertion, and increasing peripheral edema. Her proBNP was in excess of 22,000, although she does have chronic renal insufficiency with a creatinine of 1.6. Her chest x-ray showed a small pleural effusion. We performed an echocardiogram that demonstrated diastolic dysfunction. Her EF had improved to 60%. One year ago with persistent atrial fibrillation with RVR, her ejection fraction was 25-30%. She does have mild mitral regurgitation. She was diuresed overnight. She reports that she is breathing more comfortably this morning. Her O2 saturation at rest has ranged from 94- 99% on room air. This afternoon, we walked her in the halls for approximately 300 feet and her O2 saturation dropped to 86% on room air. We started 2 L of O2 and continued to walk her. Her oxygen level was never higher than 88%. We increase the oxygen to 3 L per nasal cannula and her O2 saturations were consistently in the range of 95-98% with activity. Blood pressure is trending upward. Systolic blood pressures are ranging from 128 to 150, whereas her diastolic blood pressures are in the 80s. PHYSICAL EXAMINATION: Temperature 98.2 degrees, pulse 73, respirations 19, BP 150/82. CV: Regular rate and rhythm. Lungs: Faint crackles in the bases bilaterally. Abdomen: Soft, nontender, with active bowel sounds. No hepatosplenomegaly. No abdominal bruits. Extremities: Trace ankle edema. ASSESSMENT AND PLAN: 1. Acute on chronic congestive heart failure secondary to diastolic dysfunction. We will continue a salt and fluid restricted diet. I will add low-dose Coreg 3.125 mg twice a day to hopefully improve cardiac compliance. We will continue to weigh her daily. She will take an additional Lasix if she gains 2 pounds in 24 hours. In the meantime, we will continue intravenous Lasix 40 mg intravenously every 12 hours. 2. Chronic respiratory failure with hypoxia. Given her hypoxia with minimal activity, I believe that she would be an excellent candidate for continuous home oxygen. At discharge, we will arrange for oxygen at 3 L per nasal cannula continuously. We will also arrange for portable home oxygen. 3. Paroxysmal atrial fibrillation. She remains in normal sinus rhythm. We will continue Coumadin to maintain an INR of 2 to 3 to reduce the risk of stroke. cc: Elio Hill MD
[2019-05-30] MEDS: NEURONTIN PO SCH (20:41)
[2019-05-30] MEDS ORDERED: ASPIRIN EC PO SCH (21:00)
[2019-05-30] MEDS ORDERED: COUMADIN PO SCH (21:00)
[2019-05-30] MEDS ORDERED: VOLTAREN 1% GEL TOP SCH (21:00)
[2019-05-31] MEDS: SYNTHROID PO SCH (06:06)
[2019-05-31 06:52] LABS: INR 2.3; PROTIME 25.9 Seconds (11.0-16.0)
[2019-05-31] MEDS: ALDACTONE PO SCH (08:10)
[2019-05-31] MEDS: LASIX IV SCH (08:11)
[2019-05-31] MEDS: MICARDIS PO SCH (08:11)
[2019-05-31] MEDS ORDERED: LOMOTIL PO ONE (09:22)
--- NOTE | 2019-05-31 09:59 | Diag Imaging Result Doc PS360 ---
CHEST-2 VIEWS - 05/31/2019 INDICATION: CHF COMPARISON: 05/29/2019 FINDINGS: Stable pacemaker and sternotomy. Stable cardiomegaly and pulmonary vascular congestion. Stable opacification of the left lung base with any combination of atelectasis, effusion, and infiltrate. There is a trace right pleural effusion as well. No obvious pulmonary edema. IMPRESSION: No change from prior. Electronically signed by Hang Ragsdale 05/31/2019 9:57 AM
[2019-05-31] MEDS ORDERED: LOMOTIL PO PRN (10:05)
[2019-05-31 12:11] VITALS: BP 133/79
[2019-06-01] MEDS ORDERED: COUMADIN PO SCH (21:00)
== END 2019-05-31 15:30 | disposition home health service (06) ==
LOC: 2N 17:23 → ED 17:23 → SUATTDRO 21:28
PROVIDERS: ADMIT Internal Medicine; ATTEND Internal Medicine

== ENCOUNTER 2019-07-23 11:10 | Inpatient (IN) ==
[2019-07-23 11:50] LABS: BASO# 0.07 X1000 (0.0-0.2); BASO% 0.8 % (0.0-0.8); EOS# 0.25 X1000 (0.0-0.7); EOS% 2.9 % (0.0-10.0); HEMATOCRIT 48.6 % (37.0-47.0); HEMOGLOBIN 15.1 g/dL (12.0-16.0); IMM GRAN# 0.02 X1000 (0.0-0.04); IMM GRAN% 0.2 % (0.0-0.5); LYMPH# 1.44 X1000 (1.2-3.4); LYMPH% 16.8 % (20.5-51.1); MCHC 31.1 g/dL (33-37); MCV 93.3 FL (81-99); MONO% 9.3 % (1.7-9.3); MPV 10.9 FL (7.4-10.4); NEUT# 6.01 X1000 (1.4-6.5); PLT 186 X1000 (130-400); RBC 5.21 XMIL (4.2-5.4); RDW 16.3 % (11.5-14.5); WBC 8.59 X1000 (4.8-10.8)
--- NOTE | 2019-07-23 11:56 | Diag Imaging Result Doc PS360 ---
EXAM: FOOT COMPLETE LEFT HISTORY: TOE INFECTION TECHNIQUE: Three views COMPARISON: 04/04/2017 FINDINGS: Lucent bone with erosions involving the distal first metatarsal. There is also bone erosion to the proximal portion of the proximal phalanx of the great toe. There are metatarsal and tarsal cysts with mild joint space narrowing as well as calcaneal bone spurring. No fracture. No dislocation. IMPRESSION: Findings suspicious for osteomyelitis involving the distal first metatarsal and proximal great toe. Electronically signed by Kevin Lee 07/23/2019 11:54 AM
[2019-07-23 12:11] LABS: ALB/GLOB RATIO 1.7; ALBUMIN 3.8 g/dL (3.5-5.0); CALCIUM 8.8 mg/dL (8.8-10.2); CREATININE 1.5 mg/dL (0.5-0.9); POTASSIUM 3.9 mmol/L (3.5-5.1); TOTAL BILIRUBIN 0.99 mg/dL (0.20-1.00); TOTAL PROTEIN 6.1 g/dL (6.3-8.3)
[2019-07-23 13:26] LABS: C REACTIVE PROT QUANT 9.2 mg/L (0.00-5.00)
[2019-07-23] MEDS ORDERED: VANCOMYCIN 1 GM/NS 1 GM/250 ML IVPB IV ONE (14:20)
[2019-07-23 14:44] LABS: SED RATE 0 mm/hr (0-20)
--- NOTE | 2019-07-23 14:49 | PROVIDER DOCUMENTATION ---
This chart was entered by Margie Dillon Scribe, acting as scribe for Cesar Welch MD. HPI-Rash/Wound/ReCheck - General Chief Complaint: Insect Bite/Sting Stated Complaint: SPIDER BITE ON FOOT Time Seen by Provider: 07/23/19 12:30 Source: family Allergies/Adverse Reactions: Allergies Allergy/AdvReac Type Severity Reaction Status Date / Time celecoxib [From Celebrex] Allergy Severe SWELLING Verified 05/29/19 17:58 Ykunwzu-Vxg-Owa Reductase Allergy Severe generalized Verified 05/29/19 17:58 Inhibitor body aches tiotropium bromide * Allergy Intermediate SHORTNESS Verified 05/29/19 17:58 [From Spiriva with OF BREATH HandiHaler] albuterol AdvReac Severe confusion Verified 05/29/19 17:58 azithromycin AdvReac DIARRHEA Verified 05/29/19 17:58 Home Medications: Home Medication List Medication Instructions Recorded Confirmed Last Taken Type Fluticasone 50 Mcg Nasal Stuart 2 spray ANICETO PRN PRN 07/23/13 05/29/19 05/14/19 History [Flonase] Levothyroxine [Synthroid] 100 microgm PO QAM 07/23/13 05/29/19 05/14/19 History Lansoprazole [Prevacid] 30 mg PO QPM 02/28/14 05/29/19 05/14/19 History Albuterol Sulfate [Ventolin Hfa] 1 inh INH Q4-6H PRN PRN 02/02/18 05/29/19 08/11/18 History Aspirin [Ecotrin] 1 tab PO QHS 07/07/18 05/29/19 05/14/19 History Telmisartan 40 mg PO DAILY 30 Days #30 tab 08/15/18 05/29/19 05/14/19 Rx Diclofenac 1% Gel [Voltaren 1% Gel] 1 applicatn TOP QHS 05/15/19 05/29/19 05/14/19 History Gabapentin 300 mg PO QHS 05/15/19 05/29/19 Unknown History Warfarin [Coumadin] 1 mg PO DIRECTED 05/15/19 05/29/19 05/14/19 History Furosemide 40 mg PO DIRECTED #60 tab 05/16/19 05/29/19 Unknown Rx Spironolactone [Aldactone] 12.5 mg PO DAILY #30 tab 05/16/19 05/29/19 Unknown Rx Nitroglycerin Sl [Nitroglycerin] 0.4 mg SUBLINGUAL PRN PRN tab 05/31/19 Unknown Rx Warfarin [Coumadin] 2 mg PO [id number] tab 05/31/19 Unknown Rx - History of Present Illness-Dermatology Nature of Presenting Problem: Patient is a 84 year old female who presents with family for possible insect bite to left 3rd toe. Family states noticing the possible insect bite 1 week ago. Reports seeing PCP 1 week ago and was placed on antibiotics. Family states patient saw PCP again 3 days ago and had left foot soaked in espom salt and had antibiotic increased. Family reports increase in redness and swelling to left 3rd toe. States having drainage from left 3rd toe this morning. Denies fever and injury to left foot. Location: reports: feet (left 3rd toe) Quality: reports: painful Severity: reports: mild Onset/Duration: reports: 1 week ago Timing: reports: still present Context/Associated Symptoms: reports: unknown bite/sting Identifiable cause?: No Locality of Occurance: Home Similar Symptoms Previously?: Yes Recently seen or treated by another doctor?: Yes Review of Systems - Adult - REVIEW OF SYSTEMS - ADULT Constitutional: reports: no symptoms reported. denies: fever Eyes: reports: no symptoms reported. denies: eye pain Ears, Nose, Mouth & Throat: reports: no symptoms reported. denies: throat pain Cardiovascular: reports: no symptoms reported. denies: chest pain Respiratory: reports: no symptoms reported Gastrointestinal: reports: no symptoms reported. denies: abdominal pain Genitourinary: reports: no symptoms reported. denies: flank pain Musculoskeletal: reports: see HPI, other (left 3rd toe pain). denies: back pain, neck pain Integumentary: reports: see HPI, other (possible insect bite to left 3rd toe with erythema and swelling.). denies: hives, itching Neurological: reports: no symptoms reported. denies: headache/migraines Psychiatric: reports: no symptoms reported. denies: alcohol/drug dependence Endocrine: reports: no symptoms reported Hematologic/Lymphatic: reports: no symptoms reported Allergic/Immunologic: reports: no symptoms reported All Other Systems: Reviewed and Negative Past History - Adult - PAST MEDICAL HISTORY-ADULT Review of Records: reports: Old Records Reviewed, Nursing Assessment Review Major Childhood Illnesses: reports: denies history Cardiovascular: reports: HTN, hyperlipidemia, ID (x2), pacemaker Respiratory: reports: asthma, COPD Gastrointestinal: reports: GERD Obstetrical/Gynecological: reports: denies history Genitourinary: reports: denies history Musculoskeletal: reports: denies history Neurological: reports: denies history Psychiatric: reports: denies history Endocrine/Immune: reports: thyroid disorder. denies: Diabetes Other Conditions: reports: denies history - PRIOR SURGERIES/PROCEDURES Surgical/Procedure History: reports: CABG, cholecystectomy, cardiac stent, hernia repair, other (cystoscopy) - IMMUNIZATION STATUS Childhood Immunizations: See Nurse Assessment Flu Vaccine: See Nurse Assessment - FAMILY HISTORY Family History: reviewed, not pertinent - SOCIAL HISTORY Smoking: denies Substance Use: denies Living Situation: family Physical Exam-General - PHYSICAL EXAM-ADULT Initial Vital Signs Reviewed: Yes - CONSTITUTIONAL General Appearance: alert, no apparent distress. negative: lethargic - EYES Eyes: negative: conjuctival exudate, photophobia, scleral icterus, sunken eyes - HEAD, EARS, NOSE, MOUTH & THROAT HENMT: normocephalic/atraumatic, moist mucous membranes, pharynx normal - NECK Neck: non-tender, normal inspection - RESPIRATORY Respiratory: normal breath sounds - CARDIOVASCULAR Cardiovascular: regular rate, rhythm, other (2+ DP pulses noted bilaterally). negative: bradycardia - GASTROINTESTINAL (ABDOMEN) Abdominal Exam: non tender, soft. negative: rigid - MUSCULOSKELETAL Extremity: erythema (left 3rd toe extending to dorsal aspect of foot.), swelling (left 3rd toe.), other (1 + pitting edema to bilateral lower extremities. 2 pustules present to left 3rd toe with purulent drainage.) Peripheral Pulses: dorsalis-pedis (R): 2+, dorsalis-pedis (L): 2+ - SKIN Integumentary: erythema (left 3rd toe extending to dorsal aspect of foot.), swelling (left 3rd toe.), other (2 pustules present to left 3rd toe with purulent drainage.). negative: ecchymosis - NEUROLOGIC Neurologic: grossly normal. negative: facial droop, sensory deficit - PSYCHIATRIC Psych/Mental Status: normal mood/affect. negative: anxious Progress - PLAN OF CARE/RESULTS Progress/Plan/Lab Results: Vital Signs - 8 hr 07/23/19 11:13 Temperature 97.5 F L Pulse Rate 80 Respiratory Rate 18 Blood Pressure 128/71 O2 Sat by Pulse Oximetry 95 Laboratory Results - last 24 hr 07/23/19 07/23/19 07/23/19 11:28 11:28 11:28 WBC 8.59 RBC 5.21 Hgb 15.1 Hct 48.6 H MCV 93.3 MCH 29.0 MCHC 31.1 L RDW Std Deviation 16.3 H Plt Count 186 MPV 10.9 H Immature Gran % (Auto) 0.2 Neut % (Auto) 70.0 Lymph % (Auto) 16.8 L Coffey % (Auto) 9.3 Eos % (Auto) 2.9 Baso % (Auto) 0.8 Immature Gran # (Auto) 0.02 Neut # (Auto) 6.01 Lymph # (Auto) 1.44 Coffey # (Auto) 0.80 H Eos # (Auto) 0.25 Baso # (Auto) 0.07 Sodium 146 H Potassium 3.9 Chloride 102 Carbon Dioxide 32 Anion Gap 12 BUN 28 H Creatinine 1.5 H Estimated GFR/1.73 m2 33 BUN/Creatinine Ratio 19 Glucose 159 H Calculated Osmolality 299 Calcium 8.8 Total Bilirubin 0.99 AST 24 ALT 14 Alkaline Phosphatase 86 C-Reactive Prot, Quant 9.20 H Total Protein 6.1 L Albumin 3.8 Globulin 2.3 Albumin/Globulin Ratio 1.7 Plasma Lactate TSH 20.69 H 07/23/19 13:25 WBC RBC Hgb Hct MCV MCH MCHC RDW Std Deviation Plt Count MPV Immature Gran % (Auto) Neut % (Auto) Lymph % (Auto) Coffey % (Auto) Eos % (Auto) Baso % (Auto) Immature Gran # (Auto) Neut # (Auto) Lymph # (Auto) Coffey # (Auto) Eos # (Auto) Baso # (Auto) Sodium Potassium Chloride Carbon Dioxide Anion Gap BUN Creatinine Estimated GFR/1.73 m2 BUN/Creatinine Ratio Glucose Calculated Osmolality Calcium Total Bilirubin AST ALT Alkaline Phosphatase C-Reactive Prot, Quant Total Protein Albumin Globulin Albumin/Globulin Ratio Plasma Lactate 1.4 TSH Orders Category Date Time Status FOOT COMPLETE LEFT [RAD] Stat Exams 07/23/19 11:21 Completed BLOOD CULTURE [BLDCUL] Stat Lab 07/23/19 13:25 Results C REACTIVE PROT QUANT [CHEM] Stat Lab 07/23/19 11:28 Completed CBC WITH DIFF [HEME] Stat Lab 07/23/19 11:28 Results COMPREHENSIVE METABOLIC PANEL [CHEM] Stat Lab 07/23/19 11:28 Completed LACTATE, PLASMA [CHEM] Stat Lab 07/23/19 13:25 Completed SED RATE [HEME] Stat Lab 07/23/19 11:28 Results TSH Stat Lab 07/23/19 11:28 Completed Vancomycin 1 gm/Ns Med 07/23/19 14:20 Active 1 gm in 250 ml IV NOW Result Diagrams: 07/23/19 11:28 07/23/19 11:28 - XRAY 1 XRAY: Left XRAY Study: Foot Impression: See EMR Report ( EXAM: FOOT COMPLETE LEFT HISTORY: TOE INFECTION TECHNIQUE: Three views COMPARISON: 04/04/2017 FINDINGS: Lucent bone with erosions involving the distal first metatarsal. There is also bone erosion to the proximal portion of the proximal phalanx of the great toe. There are metatarsal and tarsal cysts with mild joint space narrowing as well as calcaneal bone spurring. No fracture. No dislocation. IMPRESSION: Findings suspicious for osteomyelitis involving the distal first metatarsal and proximal great toe. Electronically signed by Kevin Lee 07/23/2019 11:54 AM 07/23/19 1154 Interpreting Physician: Kevin Lee MD Dictated Date/Time: 07/23/19 1153 cc: Cesar Welch MD; Carol Ann Hill MD) - CONSULTS/PCP/HOSPITALIST Notification #1 *Consult/PCP/Hospitalist*: Tricia for Dr. Macario Time Discussed: 14:13 Reason/Comments: Dr. Welch consulted with Tricia about patient. Consult Disposition: other (Tricia states have patient admitted to hosptialist or PCP, start antibiotics and do a culture. Tricia states Dr. Macario will consult on patient.) #2 Consult: Dr. Hill Time Discussed: 14:17 Reason/Comments: Dr. Welch consulted with Dr. Hill about patient. Consult Disposition: other (Dr. Hill states he will put in orders for his patient.) Departure - Departure Date of Disposition Decision: 07/23/19 Time of Disposition Decision: 14:46 DIAGNOSIS: Toe infection Disposition: ADMITTED INPATIENT 09 Certified Medical Emergency: Emergent Condition: Fair Referrals and Follow-Ups: Carol Ann Hill MD [Primary Care Provider] - - Critical Care Note This patient required my direct & personal management of CC.: No Attestation - Physician/ KEATON Attestation Patient care was provided by Advanced Practice Provider:: No The physician spent face to face time with patient:: Yes Advanced Practice Provider documentation review:: Supervising physician onsite and consulted in the evaluation and care of this patient. The physician did have a face to face encounter with the patient. This chart was documented by the indicated scribe, (Margie Dillon Scribe) and accurately reflects the services I performed and decisions made by me, Cesar Welch MD, as attested by the provider's signature.
[2019-07-23] MEDS ORDERED: PHENERGAN IV PRN (16:05)
[2019-07-23] MEDS ORDERED: SODIUM CHLORIDE 0.9% INJ PRN (16:05)
[2019-07-23] MEDS ORDERED: TYLENOL PO PRN (16:05)
[2019-07-23] MEDS ORDERED: NS 500 ML ONE ×2 (17:15→17:16)
[2019-07-23] MEDS: ZOSYN 3.375 GM in NS 50 ML IV SCH ×2 (17:18→23:51)
[2019-07-23] MEDS ORDERED: VENTOLIN HFA INH PRN (17:22)
[2019-07-23 19:05] LABS: INR 2.42
[2019-07-23] MEDS: ASMANEX 220 MICROGM INHALER INH SCH (20:56)
[2019-07-23] MEDS ORDERED: ZEBETA PO SCH (21:00)
--- NOTE | 2019-07-23 21:37 | HISTORY AND PHYSICAL ---
CHIEF COMPLAINT: Swelling of the 3rd digit of the left foot. HISTORY OF PRESENT ILLNESS: Ms. Jenny Montero is an 84-year-old lady who is well known to me. She has a history of multiple medical problems including chronic congestive heart failure secondary to systolic dysfunction, essential hypertension, paroxysmal atrial fibrillation, coronary artery disease, recurrent DVT, primary hypothyroidism. She has had increasing redness and erythema to the 3rd digit of her left foot. She has taken oral antibiotics for a period of 5 days. She is still having some swelling, pain and erythema in that same toe. She denies any fever, chills, nausea or vomiting. Her initial Gram stain was negative. She is having increasing pain in that toe. An x-ray of the left foot demonstrated erosions involving the distal 1st metatarsal and there was bone erosion to the proximal portion of the proximal phalanx of the great toe. No fractures were noted. PAST MEDICAL HISTORY: As above. PAST SURGICAL HISTORY: Right total knee, coronary artery bypass graft surgery, cholecystectomy, catheter ablation, permanent pacemaker. ALLERGIES: Celebrex and statins. FAMILY HISTORY: Noncontributory. SOCIAL HISTORY: She denies the use of tobacco, alcohol, or illicit drugs. MEDICATIONS: Aspirin 81 mg daily, Zebeta 5 mg daily, Lasix 40 mg daily may take a second dose if gains 2 pounds in 24 hours, levothyroxine 112 mcg daily, Asmanex 220 mcg 1 puff b.i.d., Singulair 10 mg daily, omeprazole 20 mg daily, Telmisartan 40 mg daily, Coumadin 2 mg at bedtime, Bentyl 10 mg t.i.d. with meals, sublingual nitroglycerin every 5 minutes p.r.n. chest pain, Prevacid 30 mg daily, diclofenac 1% gel apply daily. REVIEW OF SYSTEMS: She denies any recent weight gain or weight loss.HEENT: She wears glasses. CV: No chest pain, palpitations or anginal equivalents. Pulmonary: No shortness of breath, PND, orthopnea. GI: No reflux, dysphagia, melena, hematochezia, change in bowel habits or rectal bleeding. Endocrine: No polyuria, no polydipsia. Skin: No easy bruisability. : No leakage of urine with coughing or laughing. Neuro: No migraines or seizures. Psychiatric: No history of depression. This is a chronically ill-appearing 84-year-old lady no apparent distress. Temperature 98.3 degrees, pulse 80, respirations 16, BP 129/73. HEENT: Fundi with arteriolar wall thickening. Pupils equal, round, reactive to light. Extraocular eye movements intact. TMs without bullae. Neck: Supple. No masses, JVD or bruits . CV: Regular rate and rhythm. Lungs: Clear. Abdomen: Soft, nontender with active bowel sounds. Extremities: There is increasing redness and swelling of the 3rd digit of the left foot, there is no increasing red streaks on the dorsum of the foot or extending up the leg. Neuro: Nonfocal. ASSESSMENT AND PLAN: 1. Cellulitis of the 3rd digit of the left foot. She has been on oral antibiotics for 5 days. We will admit her to [facility]. I will obtain wound cultures and blood cultures. I will bolus her with Zosyn and vancomycin. I am really not sure if the plain x- ray of the foot is really dependable, we will arrange for a 3 phase bone scan to rule out osteomyelitis. Further recommendations will follow. Hopefully if there is no evidence of osteomyelitis we can continue IV antibiotics pending final cultures and then transition her back to oral medications. 2. Mild intermittent asthma. We will continue Asmanex 220 mcg 1 puff b.i.d. and use a Ventolin HFA inhaler on a p.r.n. basis. 3. Paroxysmal atrial fibrillation. She remains in normal sinus rhythm. Heart rate is well controlled on Zebeta. We will continue Coumadin to maintain an INR of 2 to 3 to reduce the risk of stroke. Given her comorbid conditions, clinical presentation and failure of outpatient therapy we will admit her to [facility] for further evaluation and management. At this point in time I anticipate that she will be in the hospital for at least 2 midnights and I will therefore place her in inpatient status. cc: Elio Hill MD
[2019-07-23] MEDS: ASPIRIN EC PO SCH (23:51)
[2019-07-23] MEDS: PRILOSEC PO SCH (23:51)
[2019-07-24] MEDS: COUMADIN PO SCH ×2 (00:09→21:20)
[2019-07-24 04:08] LABS: URINE SOURCE CLEAN CATCH
[2019-07-24 04:12] LABS: BILIRUBIN URINE NEGATIVE (NEGATIVE); BLOOD URINE NEGATIVE (NEGATIVE); COLOR YELLOW; GLUCOSE URINE NEGATIVE (NEGATIVE); KETONE URINE NEGATIVE (NEGATIVE); LEUKOCYTES URINE NEGATIVE (NEGATIVE); NITRITE URINE NEGATIVE (NEGATIVE); PROTEIN URINE NEGATIVE (NEGATIVE); SP GRAVITY URINE 1.014; TURBIDITY URINE CLEAR (CLEAR); UROBILINOGEN URINE NORMAL (NORMAL)
[2019-07-24] MEDS: ZOSYN 3.375 GM in NS 50 ML IV SCH ×5 (04:13→21:20)
[2019-07-24 04:14] LABS: UR EPITHELIAL CELLS <10 /HPF (<10); URINE BACTERIA NEGATIVE /HPF; URINE RBC <10 /HPF (<10); URINE WBC <10 /HPF (<10)
[2019-07-24] MEDS ORDERED: PNEUMOVAX 23 IM ONE (06:42)
[2019-07-24] MEDS: SYNTHROID PO SCH (08:56)
[2019-07-24] MEDS: MICARDIS PO SCH (08:56)
[2019-07-24] MEDS: ZEBETA PO SCH (08:56)
[2019-07-24] MEDS: LASIX PO SCH (08:56)
[2019-07-24] MEDS: SINGULAIR PO SCH (08:56)
[2019-07-24] MEDS ORDERED: SYNTHROID PO SCH (09:00)
[2019-07-24] MEDS: COLCRYS PO SCH ×3 (09:03→21:20)
--- NOTE | 2019-07-24 09:39 | PROGRESS NOTE ---
DATE: 07/24/2019 SUBJECTIVE: Mrs. Montero has a history of paroxysmal atrial fibrillation. She remains in normal sinus rhythm. Her heart rate is ranging from 68 to 80. She denies any chest pain, palpitations, or anginal equivalents. Blood pressure is well controlled. Systolic blood pressures are ranging from 126 to 135 whereas her diastolic blood pressures have ranged from 66 to 73. She denies any chest pain, palpitations, or anginal equivalents. She has persistent erythema and mild swelling of the 3rd toe of the left foot. Wound cultures demonstrate no bacteria although she has been on oral Augmentin as an outpatient. Blood cultures are pending. She has diminished discomfort and tenderness in that same toe. OBJECTIVE: Temperature 98.1 degrees, pulse 80, respirations 16, and BP 129/70. CV: Regular rate and rhythm with a soft systolic ejection murmur at the left sternal margin. Lungs: Clear. Abdomen: Soft and nontender with active bowel sounds. Extremities: There is redness and mild swelling of the 3rd digit of the left foot. No red streaks or extending up the foot or leg. ASSESSMENT AND PLAN: 1. Paroxysmal atrial fibrillation. She remains in normal sinus rhythm. Heart rate is well controlled on Zebeta. We will continue Coumadin to maintain an INR of 2 to 3 to reduce the risk of stroke. Her ProTime was therapeutic with an INR of 1.42 on admission. 2. Hypertension. Blood pressure is stable. We will continue Micardis, Lasix as well as Zebeta. 3. Cellulitis of the left foot. We will continue vancomycin as well as Zosyn. We will arrange for a bone scan today to make sure there is no evidence of osteomyelitis. cc: Elio Hill MD
--- NOTE | 2019-07-24 10:50 | Diag Imaging Result Doc PS360 ---
EXAM: 3 PHASE BONE SCAN 07/24/2019 HISTORY: cellulitis of foot TECHNIQUE: Three phase bone scan over the feet and lower legs following injection of 28.4 mCi of technetium 99m MDP. COMMENT: There is increased flow activity to the distal left foot with some degree of increased blood pool activity as well in this area. There appears to be particularly increased focal radiotracer accumulation in the area of the third or fourth toe on the left. There is also increased activity in the dorsal portion of the tarsus bilaterally and the proximal first metatarsal region slightly more so on the left than the right. There is apparent soft tissue calcification and erosion of the medial portion of the distal first metatarsal seen on the radiographs of 07/23/2019. There is also subchondral cyst formation and erosion in the bases of the third fourth and fifth metatarsals. There is soft tissue swelling and erosion of the middle phalanx and distal phalanx of the third toe. There is also erosion of the medial base of the first proximal phalanx. IMPRESSION: Increased radiotracer flow and blood pool activity to the left distal foot with multifocal increased static bone activity in both feet. Correlation with the plain radiographs of 07/23/2019 suggest the possibility of gouty arthropathy. Clinical correlation is recommended. Electronically signed by Nathan Cha 07/24/2019 10:47 AM
[2019-07-24] MEDS: ASMANEX 220 MICROGM INHALER INH SCH ×2 (11:55→19:41)
[2019-07-24] MEDS: PRILOSEC PO SCH ×3 (15:44→21:20)
[2019-07-24] MEDS: ASPIRIN EC PO SCH (21:20)
[2019-07-25] MEDS: ZOSYN 3.375 GM in NS 50 ML IV SCH (05:10)
[2019-07-25] MEDS: COLCRYS PO SCH ×2 (06:23→08:10)
[2019-07-25] MEDS: ZEBETA PO SCH (08:14)
[2019-07-25] MEDS: SYNTHROID PO SCH (08:14)
[2019-07-25] MEDS: LASIX PO SCH (08:14)
[2019-07-25] MEDS: SINGULAIR PO SCH (08:14)
[2019-07-25] MEDS: MICARDIS PO SCH (08:14)
[2019-07-25] MEDS ORDERED: LOMOTIL PO PRN (08:26)
[2019-07-25] MEDS: ASMANEX 220 MICROGM INHALER INH SCH ×2 (08:33→19:38)
[2019-07-25 08:56] LABS: HEMATOCRIT 45.7 % (37.0-47.0); HEMOGLOBIN 14.3 g/dL (12.0-16.0); MCH 29.4 PG (27-31); MCHC 31.3 g/dL (33-37); MCV 93.8 FL (81-99); MPV 10.4 FL (7.4-10.4); RBC 4.87 XMIL (4.2-5.4); RDW 16.4 % (11.5-14.5); WBC 6.77 X1000 (4.8-10.8)
[2019-07-25 09:45] LABS: INR 2.57; PROTIME 28.3 Seconds (11.0-16.0)
[2019-07-25 10:26] LABS: CREATININE 1.2 mg/dL (0.5-0.9); POTASSIUM 2.9 mmol/L (3.5-5.1)
[2019-07-25] MEDS: ZYLOPRIM PO SCH (10:52)
[2019-07-25] MEDS: BENTYL PO SCH ×2 (12:33→17:30)
[2019-07-25] MEDS ORDERED: KLOR-CON PO ONE (12:59)
--- NOTE | 2019-07-25 13:26 | ORTHOPAEDICS PROGRESS NOTE ---
DATE: 07/25/2019 SUBJECTIVE: Ms. Montero is sitting in bed. She states the toe is a little less painful. She feels like overall about the same. OBJECTIVE: Left lower extremity exam: The 3rd toe really looks the same as far as erythema. On that toe, tophi can be seen on top of the skin, but none of it is draining. It is still operator helper to palpation. 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 PLAN: The plan is going to be the same. I think the toe really looks the same this morning. So far cultures are negative. Once those are finalized, hopefully we can get her discharged home. Of course, that will be up to Dr. Hill. The plan from an orthopedic standpoint will be to see Ms. Montero in an outpatient setting. Hopefully, we will be able to see her Tuesday in the office and get her set up for surgery next week. Again, that surgery would either be a fusion of the DIP joint or just a tip amputation. Dictated by WILLIAM Norris for Logan Macario MD cc: WILLIAM Norris MD M. Neel Roberts, MD [facility]ella
--- NOTE | 2019-07-25 13:34 | ORTHOPAEDICS CONSULTATION ---
DATE: 07/24/2019 REASON FOR CONSULTATION: Swelling and erythema of the left 3rd toe. HISTORY OF PRESENT ILLNESS: Ms. Montero is an 84-year-old female who has a past medical history of congestive heart failure, essential hypertension, paroxysmal atrial fibrillation on Coumadin, coronary artery disease, recurrent DVT, and primary hypothyroidism. She presented to the [facility] Emergency Room after she had increasing redness to the left 3rd toe. She had been on oral antibiotics by her primary care physician for 5 days. She continued to have swelling, pain, and erythema to the toe. Because of this, she presented to the emergency room. An x-ray in the emergency room of the left foot did demonstrate erosions to the 1st distal metatarsal and the proximal portion of the 3rd toe. Because of this, she is admitted for further evaluation. Orthopedics was consulted for management of the left foot. PAST MEDICAL HISTORY: 1. Congestive heart failure. 2. Primary essential hypertension. 3. Paroxysmal atrial fibrillation on Coumadin. 4. Coronary artery disease. 5. Recurrent DVT. 6. Primary hypothyroidism. PAST SURGICAL HISTORY: 1. Right total knee arthroplasty. 2. Coronary artery bypass grafting. 3. Cholecystectomy. 4. Catheter ablation. 5. Permanent pacemaker. ALLERGIES: Celebrex and statins. FAMILY HISTORY: Noncontributory. SOCIAL HISTORY: She still lives at home with her . She denies tobacco, alcohol, or illicit drug use. MEDICATIONS: Aspirin 81 mg daily, Zebeta 5 mg daily, Lasix 40 mg daily, Synthroid 112 mcg daily, Asmanex 220 mcg 1 puff b.i.d., singular 10 mg p.o. daily, Prilosec 20 mg p.o. daily, Coumadin 2 mg at bedtime, Bentyl 10 mg t.i.d., Prevacid 30 mg daily, diclofenac gel. REVIEW OF SYSTEMS: A 10-point review of systems was completed and negative except what was mentioned above in the HPI. Physical Exam: General: Ms. Montero is an 84 year old female in no acute distress. Neuro: a/o x3 with no focal deficits CV: afib, rate controlled Pulmonary: Breathing is even and unlabored Abdomen: Nondistended Left lower extremity: The 3rd toe is inflamed and has erythema. There is tophi on the skin. It is tender to touch. There is no drainage. IMAGING STUDIES: A left foot x-ray did show findings suspicious for osteomyelitis involving the distal 1st metatarsal, as well as the 3rd distal phalanx. This x-ray was reviewed, interpreted by Dr. Macario. LABORATORY DATA: White count is 8.59, hemoglobin and hematocrit of 15.1 and 48.6, platelet count 186,000. Her INR is 2.42. Her BUN is 28 and creatinine is 1.5. Her blood cultures have been negative so far. 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 PLAN: We do believe that this is a gouty exacerbation that has actually made its way to the skin. On the erosion on the x-ray, it could certainly be from the gout. I can actually see the gouty crystals on the toe. At this point, the best thing to do would be to go ahead and surgically clean out the IP joint of the 3rd toe and either try and pin it, infuse it, or just amputated the tip of the toe. It really depends on the quality of the tissue once we get in there. Dr. Macario did discuss this with the patient, her , and Dr. Hill. Everyone is in agreement. We are hoping that we can get her discharged and do this as an outpatient procedure. There is not a lot of availability in the OR to do it on Tuesday. So, hopefully we will be able to get her out of here and then set this up outpatient. We can manage her Coumadin and everything a little bit better. She is going to continue IV antibiotics until the cultures come back. Once the cultures are finalized, we should be able to get her home. She will follow up with Dr. Macario, hopefully on Tuesday, and we can get a plan together. Thank you for the consultation. Dictated by WILLIAM Norris for Logan Macario MD cc: WILLIAM Norris MD M. Neel Roberts, MD MTDD
--- NOTE | 2019-07-25 19:07 | PROGRESS NOTE ---
DATE: 07/25/2019 SUBJECTIVE: Mrs. Montero is with complaint of increasing explosive diarrhea. She has been on oral antibiotics for several days and took several doses of Zosyn and a 1 time dose of vancomycin. She has not seen any blood or mucus in her stools. She is not really having any crampy abdominal pain. Blood pressure remains well controlled. Today, her blood pressure was 134/82. She denies any chest pain, palpitations, or anginal equivalents. She still has some redness and erythema on the 3rd toe. Gouty tophi are noted. It is fractionating still operator to palpation. ASSESSMENT AND PLAN: 1. Acute gout exacerbation with tophi, left 3rd toe. Wound cultures are negative. Blood cultures are negative. She has been unable to tolerate colchicine due to the increasing diarrhea. I will stop the colchicine. Because of the elevated uric acid level of 8.9, I will begin allopurinol 300 mg daily. She in all likelihood will either need a fusion of the distal interphalangeal joint or just a tip amputation. 2. Diarrhea she is having worsening diarrhea. She does have an underlying history of irritable bowel syndrome. I am going to increase the Bentyl to 20 mg t.i.d. with meals. She has been on antibiotics. There is always the concern for Clostridium difficile colitis. I will check stool studies for Clostridium difficile toxin and antigen. cc: Elio Hill MD
[2019-07-25] MEDS: COUMADIN PO SCH (20:22)
[2019-07-25] MEDS: ASPIRIN EC PO SCH (20:22)
[2019-07-25] MEDS: PRILOSEC PO SCH (20:22)
[2019-07-26] MEDS: BENTYL PO SCH (06:09)
[2019-07-26 07:46] VITALS: BP 134/78
[2019-07-26] MEDS: ASMANEX 220 MICROGM INHALER INH SCH (08:32)
[2019-07-26] MEDS: ZYLOPRIM PO SCH (09:17)
[2019-07-26] MEDS: SINGULAIR PO SCH (09:17)
[2019-07-26] MEDS: SYNTHROID PO SCH (09:17)
[2019-07-26] MEDS: MICARDIS PO SCH (09:17)
[2019-07-26] MEDS: ZEBETA PO SCH (09:17)
--- NOTE | 2019-08-24 08:03 | DISCHARGE SUMMARY ---
ADMISSION DATE: 07/23/2019 DISCHARGE DATE: 07/26/2019 DISCHARGE DIAGNOSES: 1. Cellulitis of the foot, chronic gouty arthritis. 2. Essential hypertension. 3. Ischemic heart disease. 4. Chronic systolic congestive heart failure. 5. Mild intermittent asthma. 6. Chronic respiratory failure with hypoxia. 7. Gastroesophageal reflux disease. 8. Paroxysmal atrial fibrillation. 9. Primary hypothyroidism. DISCHARGE INSTRUCTIONS: 1. Return to clinic in 1 week to see me, Dr. Daniel Hill for transition of care visit. 2. Activity as tolerated. 3. Healthy heart diet. 4. Medications: Coumadin 2 mg at bedtime, Bentyl 20 mg t.i.d. prior to meals, omeprazole 20 mg daily, levothyroxine 125 mcg daily, Tylenol 650 mg q.6 hours, allopurinol 300 mg daily, Lomotil 2.5 mg q.6 hours p.r.n., Zebeta 5 mg daily, Flonase nasal spray, Prevacid 30 mg daily, aspirin 81 mg daily, telmisartan 40 mg daily, Voltaren gel applied to hip daily, Gabapentin 300 mg at night, Lasix 40 mg daily. Coumadin 2 mg Tuesday, , Tuesday and Tuesday and 1 mg on Tuesday and Tuesday. DISCHARGE PHYSICAL EXAMINATION: This is a well-developed, well-nourished, 84-year-old lady in no apparent distress she is afebrile. Vital signs are stable. CV regular rate and rhythm. Lungs clear. Abdomen soft nontender with active bowel sounds. No hepatosplenomegaly. No abdominal bruits. HOSPITAL COURSE: Mrs. Montero was admitted to [facility] with what appeared to be a cellulitis of the 3rd digit of the left foot. She had been on oral antibiotics for 5 days. We treated her with Zosyn and vancomycin. We obtained wound and blood cultures. A plain film of the foot was suggestive of osteomyelitis. We performed a bone scan which demonstrated chronic gouty arthropathy, but no evidence of osteomyelitis. We consulted Dr. Larson. He felt that it was more gouty arthritis as compared to infection. He felt that it was reasonable to consider surgical debridement of the IP joint of the 3rd toe and either try to pin it infuse it or amputate the tip of the toe. We continued antibiotics pending wound cultures. Wound cultures were negative. Blood cultures were negative. We attempted to add colchicine but she was unable to tolerate colchicine due to increasing diarrhea. Her uric acid level was elevated 8.9. We increased the dosage of allopurinol to 300 mg daily. As stated earlier she was having worsening diarrhea. We checked stool studies which were negative for C- difficile toxin and antigen. We stopped the colchicine. She does have underlying IBS. We increased the Bentyl to 20 mg t.i.d. We advanced her diet. Her diarrhea improved. Having reached maximum hospital benefit, the patient was discharged in stable condition. cc: Elio Hill MD
== END 2019-07-26 10:52 | disposition home or self-care (01) | DRG 554 ==
LOC: ED 11:10 → 4N 15:33
PROVIDERS: ADMIT Internal Medicine; ATTEND Internal Medicine